=== PATIENT | female | born 1965 | race Caucasian/White ===

== ENCOUNTER 2018-05-27 01:00 | Emergency (ER) | payer SELFPAY ==
[~2018-05-27] VITALS: Ht 160 cm; Wt 77.1 kg
[2018-05-27 01:15] VITALS: BP_SYST 131
--- NOTE | 2018-05-27 01:15 | NUR ---
Patient to ER bed 4 for evaluation.
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
--- NOTE | 2018-05-27 01:25 | NUR ---
ER Dr. Cisneros at bedside examining patient.
[2018-05-27] MEDS ORDERED: DULO60CA41 PO (01:30)
[2018-05-27 02:15] VITALS: BP_SYST 120
--- NOTE | 2018-05-27 02:15 | NUR ---
Patient given written and verbal discharge instructions and verbalizes understanding. ER MD discussed with patient the results and treatment provided. Patient in stable condition. ID arm band removed. No RX given. Patient educated on pain management and to follow up with PMD. Pain Scale 0. Opportunity for questions provided and answered. Medication side effect fact sheet provided. Patient left ER in no acute distress, able to ambulate without difficulty with slow, steady gait.
== END 2018-05-27 02:15 | disposition home or self-care (01) ==
LOC: SED 01:00
DX: H11.31 Conjunctival hemorrhage, right eye (principal); R22.0 Localized swelling, mass and lump, head; R03.0 Elevated blood-pressure reading, without diagnosis of hypertension; Y04.0XXA Assault by unarmed brawl or fight, initial encounter; Y93.89 Activity, other specified; Y92.89 Other specified places as the place of occurrence of the external cause; Y99.8 Other external cause status
CPT/HCPCS: 70150-TC; 99283